=== PATIENT | female | born 1945 | race Caucasian/White ===

== ENCOUNTER → 2016-08-08 | Outpatient (CLI) | payer MEDICARE, OTHER | LOC: HEART CORB 09:28 | DX: R07.2 Precordial pain (principal) | CPT/HCPCS: 78452; A9502; J2785 ==

== ENCOUNTER → 2020-05-04 | Outpatient (CLI) | payer MEDICARE, OTHER ==
[~2020-05-04] MED LIST: ALENDRONATE SOD70 MG PO; ASPIRIN CHEWABL81 MG PO; CILOSTAZOL50 MG PO; FAMOTIDINE40 MG PO; FLAX OIL1000 MG PO; FLONASE 0.05% N16 GM; GARLIC1 EAC1 PO; HYDROCODON-ACE1 EAC2 PO; IPRAT-ALBUT 0.5-3 ML INH; LEVAQUIN500 MG PO; LORATADINE10 MG PO; MELATONIN1 MG/4 ML PO; METOPROLOL TART25 MG PO; MONTELUKAST SOD10 MG PO; MULTIVITAMINS1 EAC1 PO; NORCO 10-325 T1 EACH PO; PANTOPRAZOLE SO40 MG PO; PERCOCET 5/325 T1 EA PO; PRAVASTATIN SOD40 MG PO; PROAIR DIGIHAL90 MCG INH; PROBIOTIC1 EAC2 PO; SPIRIVA18 MCG INH; VITAMIN B-121000 MCG PO; VITAMIN C250 MG PO; VITAMIN D325 MCG PO
== END ==
LOC: KOH-I 15:22
DX: S82.852D Displaced trimalleolar fracture of left lower leg, subsequent encounter for closed fracture with routine healing (principal); X58.XXXD Exposure to other specified factors, subsequent encounter
CPT/HCPCS: 73610

== ENCOUNTER → 2020-07-21 | Outpatient (CLI) | payer MEDICARE, OTHER | LOC: KOH-I 15:09 | DX: Z47.89 Encounter for other orthopedic aftercare (principal) | CPT/HCPCS: 73610; 73630 ==

== ENCOUNTER → 2020-09-15 | Outpatient (CLI) | payer MEDICARE, OTHER | LOC: KOH-I 13:20 | DX: S82.852A Displaced trimalleolar fracture of left lower leg, initial encounter for closed fracture (principal) | CPT/HCPCS: 73610; 73630 ==

== ENCOUNTER → 2020-11-19 | Outpatient (CLI) | payer MEDICARE, OTHER | LOC: KOH-I 14:19 | DX: M25.572 Pain in left ankle and joints of left foot (principal) | CPT/HCPCS: 73610; 73630 ==

== ENCOUNTER → 2021-10-19 | Outpatient (CLI) | payer MEDICARE, OTHER | LOC: KOH-I 14:34 | DX: M25.572 Pain in left ankle and joints of left foot (principal); Z98.890 Other specified postprocedural states | CPT/HCPCS: 73610 ==